=== PATIENT | female | born 1955 | race African-American/Black ===

== ENCOUNTER 2016-10-17 15:19 | Emergency (ER) | payer MEDICARE ==
[~2016-10-17] VITALS: Ht 154.9 cm; Wt 52.2 kg
[~2016-10-17 15:19] MED LIST: CLON1TAB PO; ESOM40CA PO; HYOS0.1273 PO; NITR100C15 PO
[2016-10-17 15:47] VITALS: BP 148/85
--- NOTE | 2016-10-17 16:20 | NUR ---
CALLED NURSING SUP. FOR PICC LINE NURSE
--- NOTE | 2016-10-17 16:40 | NUR ---
PT CAME IN FOR AJAY PICC LINE MALFUNCTION, PLACED IN A WEEK AGO. NOTED REDNESS AND MINIMAL SWELLING. PT DENIES PAIN, DENIES FEVER. ABLE TO FLUSH LINE, NOTED BLOOD DRAW. SEEN BY MD FOR EVAL. SAFETY AND COMFORT MEASURES PROVIDED. WILL MONITOR.
--- NOTE | 2016-10-17 18:40 | NUR ---
TRAE AMATO AT BS TO FIX PICC LINE MALFUNCTION.
--- NOTE | 2016-10-17 19:32 | NUR ---
XRAY AT BEDSIDE FOR CHEST XRAY. PT NO LONGER IN [facility]. COULD NOT LOCATE PATIENT IN ER. Patient eloped from facility. ER MD notified.
== END 2016-10-17 19:35 | disposition left against medical advice (07) ==
LOC: ER 15:27
DX: Z45.2 Encounter for adjustment and management of vascular access device (principal); K21.9 Gastro-esophageal reflux disease without esophagitis; G82.20 Paraplegia, unspecified
CPT/HCPCS: 36569; 71010-TC; A4606; A6402; Z7610